=== PATIENT | female | born 1980 | race Hispanic/Latino ===

== ENCOUNTER 2019-02-23 09:33 | Emergency (ER) | payer SELFPAY ==
[~2019-02-23] VITALS: Ht 162.6 cm; Wt 65.8 kg
--- OUTSIDE RECORDS SUMMARY | 2019-02-23 09:38 | XMS REPORT ---
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 Problem Name Problem Code Onset Date Status Entry Date Provider Comment Standard Description Annotate Contraceptive management V25.09 Active Brian Amaya MD Encounter for other general counseling and advice on contraceptive management Insertion, IUD V25.11 Active Brian Amaya MD Encounter for insertion of intrauterine contraceptive device IUD removal V25.12 Active Brian Amaya MD Encounter for removal of intrauterine contraceptive device IUD removal V25.12 Active Brian Amaya MD Encounter for removal of intrauterine contraceptive device Fibroadenoma, 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 Brian Amaya MD Benign neoplasm of breast Abnormal mammogram 793.80 Active Brian Amaya MD Abnormal mammogram, unspecified Breast mass or lump 611.72 Active Brian Amaya MD Lump or mass in breast Other abnormal and inconclusive findings on diagnostic imaging of breast Active Brian Amaya MD Annual gynecological examination V72.3 Active Brian Amaya MD Special investigations and examinations - Gynecological examination Cervix, screening for malignant neoplasm V76.2 Active Brian Amaya MD Screening for malignant neoplasms of the cervix Mammogram not high risk screening V76.12 Active Brian Amaya MD Other screening mammogram Medication List Medication Instructions Start Date Stop Date Generic Name NDC Status Provider Patient Instruction SPRINTEC 28 0.25-35 MG-MCG ORAL TABLET 1 PILL DAILY PO NORGESTIMATE-ETH ESTRADIOL 97702961122 Active Brian Amaya MD Active MACROBID 100 MG ORAL CAPSULE 1 pill By Mouth Twice a Day x 10d MACROBID 100 MG ORAL CAPSULE 7340652 NITROFURANTOIN MONOHYD MACRO Inactive DIFLUCAN 150 MG ORAL TABLET 1 pill By Mouth single dose DIFLUCAN 150 MG ORAL TABLET 307612 FLUCONAZOLE Inactive DIFLUCAN 150 MG ORAL TABLET take 1 pill Every Other Day times 3 DIFLUCAN 150 MG ORAL TABLET 046277 FLUCONAZOLE Inactive TERCONAZOLE 0.8 % VAGINAL CREAM apply Every at bedtime vaginally for 3 days TERCONAZOLE 0.8 % VAGINAL CREAM 619903 TERCONAZOLE Inactive FERRALET 90 90-1 MG ORAL TABLET 1 pill By Mouth daily FERRALET 90 90-1 MG ORAL TABLET FE CBN-FE [id number] Inactive TERAZOL 3 0.8 % VAGINAL CREAM apply Every at bedtime for 3 d TERAZOL 3 0.8 % VAGINAL CREAM TERCONAZOLE Inactive IBUPROFEN 800 MG ORAL TABLET 1 pill By Mouth every 8 hours IBUPROFEN 800 MG ORAL TABLET 963584 IBUPROFEN Inactive MACROBID 100 MG ORAL CAPSULE 1 pill By Mouth Twice a Day x 10d NITROFURANTOIN MONOHYD MACRO [id number] No Longer Active Brian Amaya MD Active DIFLUCAN 150 MG ORAL TABLET 1 pill By Mouth single dose FLUCONAZOLE [id number] No Longer Active Brian Amaya MD Active DIFLUCAN 150 MG ORAL TABLET take 1 pill Every Other Day times 3 FLUCONAZOLE 78303650300 No Longer Active Brian Amaya MD Active TERCONAZOLE 0.8 % VAGINAL CREAM apply Every at bedtime vaginally for 3 days TERCONAZOLE 88972752254 No Longer Active Brian Amaya MD Active FERRALET 90 90-1 MG ORAL TABLET 1 pill By Mouth daily FE CBN-FE [id number] [id number] No Longer Active Brian Amaya MD Active TERAZOL 3 0.8 % VAGINAL CREAM apply Every at bedtime for 3 d TERCONAZOLE 21436806345 No Longer Active Brian Amaya MD Active IBUPROFEN 800 MG ORAL TABLET 1 pill By Mouth every 8 hours IBUPROFEN 73158718812 No Longer Active Brian Amaya MD Active Vital Signs Date Name Value Unit Range Description blood pressure, diastolic 74 mm[Hg] BP petit blood pressure, systolic 129 mm[Hg] BP sys height E&M 63 [in_us] Bdy height pulse rate E&M 69 /min Heart rate respiratory rate E&M 17 /min Resp rate temperature E&M 98.3 [degF] Body temperature weight E&M 160 [lb_av] Weight Measured blood pressure, diastolic 75 mm[Hg] BP petit blood pressure, systolic 116 mm[Hg] BP sys height E&M 63 [in_us] Bdy height pulse rate E&M 65 /min Heart rate respiratory rate E&M 17 /min Resp rate temperature E&M 98.3 [degF] Body temperature weight E&M 157 [lb_av] Weight Measured blood pressure, diastolic 63 mm[Hg] BP petit blood pressure, systolic 123 mm[Hg] BP sys height E&M 63 [in_us] Bdy height pulse rate E&M 79 /min Heart rate respiratory rate E&M 17 /min Resp rate temperature E&M 98.1 [degF] Body temperature weight E&M 153.20 [lb_av] Weight Measured Diagnostic Results Date Name Value Unit Range Description Office Visit: Procedures removal and insertion of mirena - Chemistry beta HCG, urine, semiquantitative negative Lab Report: CBC With Differential/Platelet, Comp. Metabolic Panel (14), ... - Chemistry very low density lipoproteins 13 mg/dL 5-40 hepatitis B surface antigen Negative Negative chloride, serum 103 mmol/L 96-106 urea nitrogen, blood 12 mg/dL 6-20 Office Visit: Annual / Family Planning Female -- RM 4 - Urinalysis leukocyte esterase, urine, by dipstick negative Lab Report: CBC With Differential/Platelet, Comp. Metabolic Panel (14), ... - Hematology mean corpuscular hemoglobin concentration, RBC 31.9 G/DL % 31.5-35.7 erythrocyte (RBC) count 4.03 X10E6/UL 10*6/mm3 3.77-5.28 Office Visit: Annual / Family Planning Female -- RM 4 - Urinalysis nitrite, urine, semiquantitative negative Lab Report: CBC With Differential/Platelet, Comp. Metabolic Panel (14), ... - Serology hepatitis C antibody, serum <0.1 0.0-0.9 Office Visit: Annual / Family Planning Female -- RM 4 - Urinalysis urine color yellow Lab Report: CBC With Differential/Platelet, Comp. Metabolic Panel (14), ... - Chemistry Absolute Neutrophils 2.1 X10E3/UL 10*3/uL 1.4-7.0 Office Visit: Annual / Family Planning Female -- RM 4 - Urinalysis bilirubin, urine negative Lab Report: CBC With Differential/Platelet, Comp. Metabolic Panel (14), ... - Chemistry LDL cholesterol, serum 113 mg/dL 0-99 urea nitrogen/creatinine ratio, serum 20 9-23 Lab Report: CBC With Differential/Platelet, Comp. Metabolic Panel (14), ... - Hematology mean corpuscular volume, RBC 82 fL 79-97 Lab Report: CBC With Differential/Platelet, Comp. Metabolic Panel (14), ... - Chemistry HDL cholesterol, serum 66 mg/dL >39 Lab Report: CBC With Differential/Platelet, Comp. Metabolic Panel (14), ... - Hematology monocytes as percent of blood leukocytes 6 % Not Estab. Lab Report: CBC With Differential/Platelet, Comp. Metabolic Panel (14), ... - Chemistry albumin/globulin ratio, serum 1.7 1.2-2.2 creatinine, serum 0.60 mg/dL 0.57-1.00 cholesterol, serum 192 mg/dL 618-886 4244/05/18 bilirubin, serum, total 0.3 mg/dL 0.0-1.2 Lab Report: CBC With Differential/Platelet, Comp. Metabolic Panel (14), ... - Hematology Eosinophil Absolute Count 0.1 X10E3/UL 10*3/uL 0.0-0.4 Lab Report: Ct, Ng, Trich vag by FREEDOM - Lab chlamydia DNA probe Negative Negative Office Visit: Annual / Family Planning Female -- 4 - Urinalysis appearance, urine clear blood in urine (hemoglobin) by dipstick negative Lab Report: CBC With Differential/Platelet, Comp. Metabolic Panel (14), ... - Chemistry aspartate aminotransferase (SGOT), serum 16 U/L 0-40 Lab Report: CBC With Differential/Platelet, Comp. Metabolic Panel (14), ... - Hematology red blood cell distribution width 15.6 % 12.3-15.4 leukocyte count, blood 4.4 X10E3/UL 10*3/mm3 3.4-10.8 Office Visit: Annual / Family Planning Female -- 4 - Urinalysis pH, urine, semiquantitative 6.0 Lab Report: CBC With Differential/Platelet, Comp. Metabolic Panel (14), ... - Chemistry potassium, serum 4.4 mmol/L 3.5-5.2 immature granulocytes, percentage of total cells, blood 0 % Not Estab. albumin, serum 4.8 g/dL 3.5-5.5 Lab Report: CBC With Differential/Platelet, Comp. Metabolic Panel (14), ... - Hematology lymphocyte count, blood, automated 2.0 X10E3/UL 10*3/mm3 0.7-3.1 hematocrit, blood 33.2 % 34.0-46.6 Lab Report: Ct, Ng, Trich vag by FREEDOM - Microbiology Neisseria gonorrhoeae DNA probe Negative Negative Lab Report: CBC With Differential/Platelet, Comp. Metabolic Panel (14), ... - Chemistry sodium, serum 141 mmol/L 134-144 Lab Report: CBC With Differential/Platelet, Comp. Metabolic Panel (14), ... - Hematology neutrophils as percent of blood leukocytes 45 % Not Estab. basophils as percent of blood leukocytes 1 % Not Estab. Office Visit: Annual / Family Planning Female -- 4 - Urinalysis protein, urine, semiquantitative (dipstick) negative Lab Report: CBC With Differential/Platelet, Comp. Metabolic Panel (14), ... - Serology rapid plasma reagin antibody, serum Non Reactive Non Reactive Lab Report: CBC With Differential/Platelet, Comp. Metabolic Panel (14), ... - Chemistry carbon dioxide, venous blood 23 mmol/L 18-29 triglyceride, serum, fasting 66 mg/dL 0-149 calcium, serum 9.8 mg/dL 8.7-10.2 alanine aminotransferase (SGPT), serum 13 U/L 0-32 Lab Report: CBC With Differential/Platelet, Comp. Metabolic Panel (14), ... - Hematology mean corpuscular hemoglobin, RBC 26.3 pg 26.6-33.0 Office Visit: Annual / Family Planning Female -- 4 - Urinalysis specific gravity, urine 1.020 Lab Report: CBC With Differential/Platelet, Comp. Metabolic Panel (14), ... - Chemistry protein, total, serum 7.6 g/dL 6.0-8.5 alkaline phosphatase, serum 69 U/L 39-117 Lab Report: CBC With Differential/Platelet, Comp. Metabolic Panel (14), ... - Hematology hemoglobin, blood 10.6 g/dL 11.1-15.9 lymphocytes as percent of blood leukocytes 45 % Not Estab. Office Visit: Annual / Family Planning Female -- RM 4 - Urinalysis glucose, urine, semiquantitative negative Lab Report: CBC With Differential/Platelet, Comp. Metabolic Panel (14), ... - Genetics/fertility eGFR if 133 mL/min/1.73m2 >59 Lab Report: CBC With Differential/Platelet, Comp. Metabolic Panel (14), ... - Hematology basophil count, absolute 0.0 x10E3/uL 0.0-0.2 Lab Report: CBC With Differential/Platelet, Comp. Metabolic Panel (14), ... - Chemistry globulin, serum 2.8 1.5-4.5 Estimated Glomerular Filtration Rate (calc) 115 mL/min/1.73m2 >59 Lab Report: CBC With Differential/Platelet, Comp. Metabolic Panel (14), ... - Hematology eosinophils as percent of blood leukocytes 3 % Not Estab. Lab Report: CBC With Differential/Platelet, Comp. Metabolic Panel (14), ... - Chemistry blood glucose, random 94 mg/dL 65-99 Office Visit: Annual / Family Planning Female -- RM 4 - Urinalysis urobilinogen, urine, semiquantitative (dipstick) negative Lab Report: CBC With Differential/Platelet, Comp. Metabolic Panel (14), ... 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
--- OUTSIDE RECORDS SUMMARY | 2019-02-23 09:38 | XMS REPORT ---
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 Allergies, Adverse Reactions, Alerts This patient has no known allergies or adverse reactions. Medications This patient has no known medications. Results Test Description Test Time Test Comments Text Results Atomic Results Result Comments BREAST ULTRASOUND BILATERAL 2018-12-22 10:48:12 - BREAST ULTRASOUND BILATERALULTRASOUND OF BOTH BREASTS AND BOTH AXILLA: 12/22/2018CLINICAL: Followup to previous exam. Comparison is made to exams dated 03/24/2018 ultrasound, 09/14/2017 ultrasound, a nd 01/22/2017 ultrasound - [facility]-. Real-time ultrasound of both breasts and both axilla was performed. No abnormalities were seen sonographically in either axilla. There are multiple stable variably sized hypoechoic solid masses in the breasts. The stable mass in the left breast at 7 o'clock, 1 cm from the nipple, is a likely complicated cyst.No new mass or focus of parenchymal distortion was imaged.There is minimal subareolar duct dilatation in the right breast and mild dilatation on the left, with no intraductal mass or debris imaged. IMPRESSION: BENIGN Stable benign masses bilaterally. Annual screening mammogram in March 2019 recommended. There is no sonographic evidence of malignancy. Resume annual mammogram screening schedule is recommended. Mariusz Cronin M.D. rb/:12/22/2018 10:48:12 Entry: - 12/24/2018 14:45:36Imaging Technologist: Marisa Rose , [facility]- FWletter sent: BIRADS 1-2 Normal Ultrasound BI-RADS: 2 Benign
[2019-02-23 10:25] LABS: BASOPHILS % 0.4 % (0.0-1.0); EOSINOPHILS # (AUTO) 0.1 (0.0-0.4); EOSINOPHILS % 1.7 % (0.0-6.0); LYMPHOCYTES # (AUTO) 1.7 (1.0-3.2); LYMPHOCYTES % 31.5 % (18.0-39.1); MEAN CORPUSCULAR HEMOGLOBIN 30.7 pg (28-32); MEAN CORPUSCULAR HGB CONC 34.7 g/dL (31-35); MEAN CORPUSCULAR VOLUME 88.5 fL (81-99); MONOCYTES # (AUTO) 0.3 (0.2-0.8); MONOCYTES % 5.4 % (4.4-11.3); NEUTROPHILS # (AUTO) 3.2 (2.1-6.9); NEUTROPHILS % 60.6 % (38.7-80.0); PLATELET COUNT 167 x10e3/uL (140-360); RED BLOOD COUNT 3.84 x10e6/uL (3.6-5.1); RED CELL DISTRIBUTION WIDTH 12.7 % (11.7-14.4)
[2019-02-23 10:32] LABS: CLARITY,URINE SL CLOUDY (CLEAR); COLOR,URINE YELLOW (YELLOW); KETONES,URINE NEGATIVE (NEGATIVE); LEUKOCYTE ESTERASE ,URINE NEGATIVE (NEGATIVE); NITRITE,URINE NEGATIVE (NEGATIVE); PROTEIN,URINE DIPSTICK NEGATIVE (NEGATIVE)
[2019-02-23 10:33] LABS: BILIRUBIN,URINE NEGATIVE (NEGATIVE); URINE UROBILINOGEN 0.2 mg/dL (0.2 - 1)
[2019-02-23 10:36] LABS: INR 0.93
[2019-02-23 10:37] LABS: PARTIAL THROMBOPLASTIN TIME 29.8 seconds (23.8-35.5)
[2019-02-23 10:45] LABS: ALANINE AMINOTRANSFERASE 12 IU/L (0-55); ALBUMIN 4.1 g/dL (3.5-5.0); ALBUMIN/GLOBULIN RATIO 1.2 (0.8-2.0); ALKALINE PHOSPHATASE 57 IU/L (40-150); BLOOD UREA NITROGEN 13 mg/dL (7-26); BUN/CREATININE RATIO 19 (6-25); CALCIUM 9.3 mg/dL (8.4-10.2); CARBON DIOXIDE 22 mmol/L (22-29); CHLORIDE 108 mmol/L (98-107); CREATININE, SERUM 0.68 mg/dL (0.57-1.11); EST GLOMERULAR FILTRATION RATE > 60 ML/MIN (60-); GLUCOSE 93 mg/dL (74-118); HEMOGLOBIN 11.8 g/dL (12.0-16.0); MAGNESIUM 2.1 MG/DL (1.3-2.1); SODIUM 137 mmol/L (136-145)
[2019-02-23 11:04] LABS: THYROID STIMULATING HORMONE 1.941 uIU/mL (0.350-4.940)
[2019-02-23 11:15] LABS: BACTERIA,URINE RARE /HPF; EPITHELIAL CELLS,URINE FEW /LPF; RBC,URINE 0-5 /HPF (0-5)
[2019-02-23 11:39] VITALS: BP 104/58
== END 2019-02-23 12:11 | disposition home or self-care (01) ==
LOC: ER 09:33
DX: N93.8 Other specified abnormal uterine and vaginal bleeding (principal)
CPT/HCPCS: 36415; 80053; 81001; 83735; 84443; 84702; 85025; 85610; 85730; 99283